=== PATIENT | male | born 1930 | race Native Hawaiian/Other Pacific Islander ===

== ENCOUNTER 2017-11-06 18:00 | Emergency (ER) | payer OTHER ==
[~2017-11-06] VITALS: Ht 190.5 cm; Wt 79.8 kg
[2017-11-06 18:25] VITALS: TEMP 100.2
[2017-11-06 19:15] LABS: PLATELET COUNT 246 K/uL (142-355)
[2017-11-06 19:24] LABS: POTASSIUM 3.8 mmol/L (3.6-5.2)
[2017-11-06 20:04] VITALS: BP 174/82
== END 2017-11-06 20:09 | disposition home or self-care (01) ==
LOC: ED 18:00
DX: K52.89 Other specified noninfective gastroenteritis and colitis (principal); J02.0 Streptococcal pharyngitis; J90 Pleural effusion, not elsewhere classified
CPT/HCPCS: 74022; 80053; 85027; 87804; 87880; 96373; 99283; J0696

== ENCOUNTER 2017-11-08 01:40 | Outpatient (CLI) | payer OTHER | END 2017-11-08 03:02 | disposition short-term general hospital (02) | LOC: AMB 01:40 | DX: K85.80 Other acute pancreatitis without necrosis or infection (principal); I24.9 Acute ischemic heart disease, unspecified; N39.0 Urinary tract infection, site not specified; J90 Pleural effusion, not elsewhere classified; R68.89 Other general symptoms and signs; R11.2 Nausea with vomiting, unspecified | CPT/HCPCS: A0425; A0427 ==

== ENCOUNTER 2017-11-08 08:32 | Emergency (ER) | payer OTHER ==
[~2017-11-08] VITALS: Ht 185.4 cm; Wt 79.8 kg
[2017-11-08 08:45] VITALS: TEMP 97.9
[2017-11-08 09:57] LABS: PLATELET COUNT 252 K/uL (142-355)
[2017-11-08 10:05] LABS: POTASSIUM 3.9 mmol/L (3.6-5.2)
[2017-11-08 14:00] VITALS: BP 132/66
== END 2017-11-08 14:00 | disposition home or self-care (01) ==
LOC: ED 08:32
PROVIDERS: Emergency Medicine
DX: K85.80 Other acute pancreatitis without necrosis or infection (principal); I24.9 Acute ischemic heart disease, unspecified; N39.0 Urinary tract infection, site not specified; J90 Pleural effusion, not elsewhere classified; R68.89 Other general symptoms and signs; R11.2 Nausea with vomiting, unspecified
CPT/HCPCS: 36415; 80053; 81000; 82150; 82550; 82553; 83690; 84484; 85027; 85610; 85730; 93005; 96360; 96361; 96365; 96374; 96375; 99284; J0696; J2405

== ENCOUNTER 2018-01-17 13:51 | Emergency (ER) | payer OTHER ==
[~2018-01-17] VITALS: Ht 188 cm; Wt 77.1 kg
[2018-01-17 15:13] LABS: POTASSIUM 3.6 mmol/L (3.6-5.2); SODIUM 135 mmol/L (136-145)
[2018-01-17 15:17] LABS: PLATELET COUNT 260 K/uL (142-355)
[2018-01-17 16:00] VITALS: BP 153/63; TEMP 98
== END 2018-01-17 16:00 | disposition home or self-care (01) ==
LOC: ED 13:51
PROVIDERS: Internal Medicine
DX: I10 Essential (primary) hypertension (principal); V89.0XXA Person injured in unspecified motor-vehicle accident, nontraffic, initial encounter; Y92.89 Other specified places as the place of occurrence of the external cause
CPT/HCPCS: 36415; 80053; 84484; 85027; 93005; 99283

== ENCOUNTER 2018-01-24 10:18 | Emergency (ER) | payer OTHER ==
[~2018-01-24] VITALS: Ht 188 cm; Wt 74.8 kg
[2018-01-24] MEDS ORDERED: ASPIR-LOW81 MG PO (10:26)
[2018-01-24] MEDS ORDERED: HYDROCO/APAP1 TA4 PO (10:27)
[2018-01-24] MEDS ORDERED: REMERON SOLTAB15 MG OR (10:29)
[2018-01-24] MEDS ORDERED: PANTOPRAZOLE 40MG TA PO (10:31)
[2018-01-24] MEDS ORDERED: METO50TA27 PO (10:31)
[2018-01-24] MEDS ORDERED: CLONAZEP ODT2 MG PO (10:31)
[2018-01-24 11:01] LABS: PLATELET COUNT 281 K/uL (142-355)
[2018-01-24 11:09] LABS: POTASSIUM 4.3 mmol/L (3.6-5.2); SODIUM 133 mmol/L (136-145)
[2018-01-24 13:35] VITALS: BP 159/67; TEMP 97.8
== END 2018-01-24 13:35 | disposition home or self-care (01) ==
LOC: ED 10:18
PROVIDERS: Specialist
DX: E86.9 Volume depletion, unspecified (principal); S06.2X9A Diffuse traumatic brain injury with loss of consciousness of unspecified duration, initial encounter; R46.89 Other symptoms and signs involving appearance and behavior; R00.1 Bradycardia, unspecified
CPT/HCPCS: 36415; 80053; 81000; 83605; 83735; 84100; 84484; 85027; 93005; 96360; 99284

== ENCOUNTER 2018-05-21 13:34 | Outpatient (CLI) | payer OTHER ==
[~2018-05-21 13:34] MED LIST: ASPIR-LOW81 MG PO; CLONAZEP ODT2 MG PO; HYDROCO/APAP1 TA4 PO; METO50TA27 PO; PANTOPRAZOLE 40MG TA PO; REMERON SOLTAB15 MG OR
== END 2018-05-21 20:25 | disposition home or self-care (01) ==
LOC: RAD 13:34
DX: M25.552 Pain in left hip (principal)

== ENCOUNTER 2019-03-21 09:50 | Outpatient (CLI) | payer OTHER ==
[2019-03-21 10:55] LABS: PLATELET COUNT 200 K/uL (142-355)
[2019-03-21 11:01] LABS: POTASSIUM 3.8 mmol/L (3.6-5.2)
== END 2019-03-21 22:43 | disposition home or self-care (01) ==
LOC: LAB 09:50
PROVIDERS: Surgery
DX: Z01.812 Encounter for preprocedural laboratory examination (principal); I70.235 Atherosclerosis of native arteries of right leg with ulceration of other part of foot
CPT/HCPCS: 36415; 80048; 85027

== ENCOUNTER 2020-07-20 01:36 | Emergency (ER) | payer OTHER ==
[~2020-07-20] VITALS: Ht 182.9 cm; Wt 68.0 kg
[2020-07-20 01:45] VITALS: BP 00/00
== END 2020-07-20 03:00 | disposition expired ==
LOC: ED 01:48
PROC: 5A12012 Performance of Cardiac Output, Single, Manual (ICD-10-PCS; principal; 2020-07-20)
DX: I46.9 Cardiac arrest, cause unspecified (principal)
CPT/HCPCS: 92950; 96360; 96375; 99285; J0171; J0461